=== PATIENT | male | born 1995 | race Caucasian/White ===

== ENCOUNTER 2017-05-22 13:39 | Emergency (ER) | payer BC ==
[~2017-05-22] VITALS: Ht 175.3 cm; Wt 62.0 kg
[2017-05-22 13:46] VITALS: TEMP 36.5; Ht 175.3 cm; Wt 62.0 kg
[2017-05-22] MEDS ORDERED: ACETAMINOPHEN 500 MG TAB PO STA (13:58)
[2017-05-22] MEDS ORDERED: ONDANSETRON 2MG ODT PO STA (13:58)
[2017-05-22] MEDS ORDERED: DOXY-300 (14:40)
--- NOTE | 2017-05-22 14:43 | DIAGNOSTIC IMAGING REPORT ---
FACIAL BONES MIN 3 VIEWS RTN HISTORY: 22 years-old Male right orib/zygoma pain swelling hit by ball acute right orbital pain status post trauma COMPARISON: None available TECHNIQUE: 3 views of the facial bones FINDINGS: No acute facial or orbital fracture identified. Imaged paranasal sinuses and mastoid air cells appear generally well aerated. No opaque foreign body identified. IMPRESSION: No acute facial bone fracture or opaque foreign body. The above report was generated using voice recognition software. It may contain grammatical, syntax or spelling errors. Electronically signed by: Ar Carlson M.D. 05/22/2017 2:41 PM Dictated Date/Time: 05/22/2017 2:39 PM
--- NOTE | 2017-05-22 15:17 | EMERGENCY ROOM VISIT NOTE ---
History Report prepared by Davidibradha: Terell Mckeon Under the Supervision of: Dr. Anil Burgess M.D. First contact with patient: 13:50 Chief Complaint: HEAD INJURY (MINOR) Stated Complaint: Head injury - syncope History of Present Illness The patient is a 22 year old male who presents to the Emergency Room with complaints of a constant headache that started an hour ago. The patient admits that he is here for a dodgeball tournament and was sitting on the sideline when he got hit with a dodgeball. The patient reports that the ball hit the right side of his face, and he is not sure if he had LOC. He states that he does not remember many details, but remembers that he went to the trash can to dry heave. The patient states that he was able to sit on the couch and rest. He states that he currently is not experiencing nausea, but is experiencing a mild headache all around and lightheadedness. The patient admits that he is taking acne medication. He denies history of blood clots, vision problems, and any other injury. Source of History: patient Onset: an hour ago Position: head Symptom Intensity: mild Timing: constant Associated Symptoms: + nausea Review of Systems See HPI for pertinent positives and negatives. A total of ten systems were reviewed and were otherwise negative. Past Medical & Surgical Medical Problems: (1) Acne Family History Patient reports no known family medical history. Social History Smoking Status: Never Smoker Occupation Status: student Current/Historical Medications Miscellaneous Medications Doxycycline (Monohydrate) (Doxycycline), Unknown Dose Allergies Coded Allergies: Peanut (Unverified Allergy, Unknown, "HIVES, CAN'T BREATHE", 05/22/17) Sulfa Antibiotics (Unverified Allergy, Unknown, HIVES, CAN'T BREATHE, 05/22) Physical Exam Vital Signs Date Time Temp Pulse Resp B/P (MAP) Pulse Ox O2 Delivery O2 Flow Rate FiO2 05/22/17 16:49 51 16 113/62 96 Room Air 05/22/17 16:02 51 15 104/61 97 Room Air 05/22/17 14:43 57 16 97/72 99 Room Air 05/22/17 13:48 78 05/22/17 13:46 36.5 80 16 128/83 100 Room Air Physical Exam GENERAL: Awake, alert, well-appearing, in no distress HENT: Erythema and small contusion to the right inferior lateral orbit extending to zygoma. Oropharynx unremarkable. Dry mucous membrane. EYES: Normal conjunctiva. Sclera non-icteric. NECK: Supple. No nuchal rigidity. FROM. No JVD. RESPIRATORY: Clear to auscultation. CARDIAC: Regular rate, normal rhythm. Extremities warm and well perfused. Pulses equal. ABDOMEN: Soft, non-distended. No tenderness to palpation. No rebound or guarding. No masses. RECTAL: Deferred. MUSCULOSKELETAL: Chest examination reveals no tenderness. The back is symmetrical on inspection without obvious abnormality. There is no CVA tenderness to palpation. No joint edema. LOWER EXTREMITIES: Calves are equal size bilaterally and non-tender. No edema. No discoloration. NEURO: Normal sensorium. No sensory or motor deficits noted. Neuro intact. Finger to nose cerebellar intact. SKIN: No rash or jaundice noted. Medical Decision & Procedures ER Provider Diagnostic Interpretation: Radiology results as stated below per my review and radiologist interpretation FACIAL BONES MIN 3 VIEWS RTN HISTORY: 22 years-old Male right orib/zygoma pain swelling hit by ball acute right orbital pain status post trauma COMPARISON: None available TECHNIQUE: 3 views of the facial bones FINDINGS: No acute facial or orbital fracture identified. Imaged paranasal sinuses and mastoid air cells appear generally well aerated. No opaque foreign body identified. IMPRESSION: No acute facial bone fracture or opaque foreign body. The above report was generated using voice recognition software. It may contain grammatical, syntax or spelling errors. Electronically signed by: Ar Carlson M.D. 05/22/2017 2:41 PM Dictated Date/Time: 05/22/2017 2:39 PM Medications Administered Medications (Trade) Dose Ordered Sig/Angelic Route Start Time Stop Time Status Last Admin Dose Admin Acetaminophen (Tylenol Tab) 1,000 mg NOW STAT PO 05/22/17 13:58 05/22/17 14:02 DC 05/22/17 14:08 1,000 MG Ondansetron HCl (Zofran Odt) 4 mg NOW STAT PO 05/22/17 13:58 05/22/17 14:02 DC 05/22/17 14:08 4 MG ED Course 1352: The patient was evaluated in room C11B. A complete history and physical exam was performed. 1358: Ordered Ondansetron HCl 4 mg PO, Tylenol Tab 1000 mg PO. 1620: I reevaluated the patient. Discussed results and discharge instructions: He verbalized understanding and agreement. The patient is ready for discharge. Medical Decision I reviewed the patient's past medical history, medications, and the nursing notes as described above. The patient's presentation and history were concerning for concussion, soft tissue injury, dehydration, intracranial hemorrhage. Patient is a 22-year-old gentleman who presents emergency Department after being hit in the right side of his head at the [employer] while in a dodgeball tournament with subsequent confusion and nausea with dry heaving 1 per history of present illness. Denies any history of clotting disorder. On arrival the patient is a relatively well-appearing, no acute distress, afebrile with stable vital signs. He is neurologically intact as well as with normal cerebellar including finger to nose and alternating palms. He has a minor contusion to the right lateral inferior orbit to the zygoma mild tenderness to palpation. Right eye is atraumatic without injection, edema, or discharge. EOMI without any disconjugate gaze. No proptosis. X-ray of facial bones negative for fracture. Observed near 4 hours from injury continued improvement, delayed with steady gait. Given minor mechanism and normal mental status and exam and dictation for CT scan at this time. Sx most likely consistent with concussion. She educated on avoiding sensory stimulus and plan to follow up with the student health clinic at his [employer] [facility] [employer] where he is a student. Findings and plan for follow-up reviewed with patient. Patient agreeable and d/c 'd per discharge instructions. Medication Reconcilliation Current Medication List: was personally reviewed by me Blood Pressure Screening Patient's blood pressure: Normal blood pressure Impression Primary Impression: Concussion Additional Impression: Contusion Scribe Attestation The scribe's documentation has been prepared under my direction and personally reviewed by me in its entirety. I confirm that the note above accurately reflects all work, treatment, procedures, and medical decision making performed by me. Departure Information Dispostion Home / Self-Care Referrals No Doctor, Assigned (PCP) Forms HOME CARE DOCUMENTATION FORM, IMPORTANT VISIT INFORMATION Patient Instructions Bruises Contusions, ED Concussion, My [facility] Additional Instructions Please follow up with your primary care physician in the next 1-3 days for re- evaluation. You likely have a concussion. Otherwise, your exam and xray did not show signs of an emergent condition at this time. Take ibuprofen or Tylenol for pain as needed. Plenty of fluids to ensure hydration. Avoid sensory stimulus if you feel your symptoms return or are worsened. Return to the emergency department for worsening symptoms as described in the accompanying instructions. Problem Qualifiers
[2017-05-22 16:49] VITALS: BP 113/62; PULSE 51; O2SAT 96
== END 2017-05-22 16:53 | disposition home or self-care (01) ==
LOC: C.EDC 13:41
DX: S06.0X0A Concussion without loss of consciousness, initial encounter (principal); S00.93XA Contusion of unspecified part of head, initial encounter; W22.8XXA Striking against or struck by other objects, initial encounter; L70.9 Acne, unspecified; Z79.899 Other long term (current) drug therapy